=== PATIENT | male | born 1985 | race Caucasian/White ===

== ENCOUNTER 2018-08-16 13:32 | Emergency (ER) | payer OTHER ==
--- NOTE | 2018-08-16 16:53 | ED ---
Syncope/Near Syncope - HPI Summary HPI Summary: This patient is a 32 year old M presenting to ED with a chief complaint of syncope at 0200 this morning. Patient had a stomachache, cramps, and diaphoresis last night and vomited 1x. He went to take a shower and became lightheaded, experienced loss of consciousness and fell and hit his head on the tiled bathroom floor at 0200 this morning. Patient was not drinking alcohol. In the ER he does not have any abdominal pain anymore and has had a bowel movement. Patient is not on blood thinners. His child at home had a stomach bug recently. The patient rates the pain 1/10 in severity. Symptoms aggravated by nothing. Symptoms alleviated by nothing. Patient reports stuff neck. No PMHx of DM, HTN, HLD. Patient denies previous surgery. FHx of HTN but no DM. Patient occasionally drinks alcohol, does not use substances, and has never smoked tobacco. - History Of Current Complaint Chief Complaint: EDSyncope Time Seen by Provider: 08/16/18 16:07 Hx Obtained From: Patient Onset/Duration: Sudden Onset, Resolved Timing: Seconds Context: Unwitnessed, Loss Of Consciousness Activity At Onset: Exertion - Getting up to take a shower Associated Head Trauma: Yes Aggravating Factor(s): Nothing Alleviating Factor(s): Nothing Associated Signs And Symptoms: Diaphoresis, Head Trauma (Recent), Pain - Stiff neck, Vomiting, Other - Resolved abdominal pain - Allergies/Home Medications Allergies/Adverse Reactions: Allergies Allergy/AdvReac Type Severity Reaction Status Date / Time No Known Allergies Allergy Verified 08/16/18 13:42 Home Medications: Home Medications NK [No Home Medications Reported] 08/16/18 [History Confirmed 08/16/18] PMH/Surg Hx/FS Hx/Imm Hx Endocrine/Hematology History: Denies: Hx Diabetes Cardiovascular History: Denies: Hx Hypercholesterolemia, Hx Hypertension - Surgical History Surgery Procedure, Year, and Place: Denies Infectious Disease History: No Infectious Disease History: Denies: Traveled Outside the [place] in Last 30 Days - Family History Known Family History: Positive: Hypertension Negative: Diabetes - Social History Alcohol Use: Occasionally Hx Substance Use: No Substance Use Type: Reports: None Hx Tobacco Use: No Smoking Status (MU): Never Smoked Tobacco Review of Systems Positive: Skin Diaphoresis Gastrointestinal: Other - Cramps Positive: Abdominal Pain, Vomiting Musculoskeletal: Other - Stiff neck Positive: Syncope All Other Systems Reviewed And Are Negative: Yes Physical Exam - Summary Physical Exam Summary: GENERAL: Patient is a well-developed and nourished M who is lying comfortable in the stretcher. Patient is not in any acute respiratory distress. HEAD AND FACE: Normocephalic EYES: PERRLA, EOMI x 2. EARS: Hearing grossly intact. MOUTH: Oropharynx within normal limits. NECK: Supple, trachea is midline, no adenopathy, no JVD, no carotid bruit. CHEST: Symmetric, no tenderness at palpation LUNGS: Clear to auscultation bilaterally. No wheezing or crackles. CVS: Regular rate and rhythm, S1 and S2 present, no murmurs or gallops appreciated. ABDOMEN: Soft, non-tender. Bowel sounds are normal. No abnormal abdominal pulsations. EXTREMITIES: Full ROM in all major joints, no edema, no cyanosis or clubbing. NEURO: Alert and oriented x 3. No acute neurological deficits. Speech is normal and follows commands. SKIN: Dry and warm MUSCULOSKELETAL: Slight tenderness to palpation of the paraspinal cervical area. GCS: 15 Triage Information Reviewed: Yes Vital Signs On Initial Exam: Initial Vitals Temp Pulse Resp BP Pulse Ox 99 F 82 16 117/81 96 08/16/18 13:38 08/16/18 13:38 08/16/18 13:38 08/16/18 13:38 08/16/18 13:38 Vital Signs Reviewed: Yes Diagnostics - Vital Signs Vital Signs Temp Pulse Resp BP Pulse Ox 08/16/18 16:38 75 18 114/69 95 08/16/18 16:00 74 17 97 08/16/18 15:58 13 08/16/18 15:30 98.7 F 78 16 115/58 99 08/16/18 13:38 99 F 82 16 117/81 96 - Laboratory Result Diagrams: 08/16/18 16:53 08/16/18 16:53 Lab Statement: Any lab studies that have been ordered have been reviewed, and results considered in the medical decision making process. - CT C-Spine CT Interpretation Completed By: Radiologist Summary of CT Findings: No CT evidence for traumatic cervical spine injury. Dr. Varghese has reviewed this radiology report. Brain CT Interpretation Completed By: Radiologist Summary of CT Findings: No CT evidence for traumatic brain injury or acute intracranial process. Dr. Varghese has reviewed this radiology report. - EKG 1624 Cardiac Rate: NL - 63 BPM EKG Rhythm: Sinus Rhythm Summary of EKG Findings: NSR at 63 BPM, right axis deviation, benign early repolarization. Re-Evaluation - Re-Evaluation First Eval Re-Evaluation Time: 18:19 Comment: Discussed radiology results with patient. Patient will be discharged home with dx of head injury and vasovagal symptoms and instructions to follow- up with cardiology. Patient understands and agrees with this plan. Course/Dx Course Of Treatment: This patient is a 32 year old M presenting to ED with a chief complaint of syncope at 0200 this morning. In the ED course, bloodwork was obtained. CT C-spine revealed no CT evidence for traumatic cervical spine injury. CT brain revelaed no CT evidence for traumatic brain injury or acute intracranial process. EKG revealed NSR at 63 BPM, right axis deviation, benign early repolarization. Patient will be discharged home with dx of head injury and vasovagal symptoms. I discussed results with patient, and he reports feeling better. He is hemodynamically stable and safe for discharge. Strict return precautions given and he will otherwise follow up with his manager risk management. - Diagnoses Provider Diagnoses: Head injury, Vasovagal episode Discharge - Sign-Out/Discharge Documenting (check all that apply): Patient Departure - Discharge Patient Received Moderate/Deep Sedation with Procedure: No - Discharge Plan Condition: Stable Disposition: HOME Patient Education Materials: Syncope (ED), Head Injury (ED) Referrals: Breana Kim MD [Medical Doctor] - 3 Days Additional Instructions: Follow up with your Dr. Kim, manager risk management, in 1-3 days. RETURN TO THE EMERGENCY DEPARTMENT FOR CHANGING OR WORSENING SYMPTOMS. - Billing Disposition and Condition Condition: STABLE Disposition: Home - Attestation Statements Document Initiated by Scribe: Yes Documenting Scribe: Palmer Figueredo Provider For Whom Elanaibe is Documenting (Include Credential): Anjelica Varghese MD Scribe Attestation: Palmer Carlos, scribed for Anjelica Varghese MD on 08/16/18 at 2049. Scribe Documentation Reviewed: Yes Provider Attestation: The documentation as recorded by the Palmer castellano accurately reflects the service I personally performed and the decisions made by me, Anjelica Varghese MD Status of Scribe Document: Viewed
[2018-08-16 17:01] LABS: ABS Lymphocytes 1.3 10^3/ul (1.0-4.8); ABS Monocytes 0.3 10^3/ul (0-0.8); ABS Neutrophils 1.5 10^3/ul (1.5-7.7); Hematocrit 42 % (42-52); Hemoglobin 14.2 g/dL (14.0-18.0); Mean Corpuscular HGB Conc 34 g/dL (31-36); Mean Corpuscular Hemoglobin 31 pg (27-31); Mean Corpuscular Volume 90 fL (80-94); Mean Platelet Volume 7.7 fL (7.4-10.4); Nucleated Red Blood Cells % 0.1; Platelet Count 172 10^3/uL (150-450); Red Blood Count 4.65 10^6 /uL (4.18-5.48); Red Cell Distribution Width 13 % (10.5-15); White Blood Count 3.2 10^3/uL (3.5-10.8)
[2018-08-16 17:19] LABS: ALT 17 U/L (7-52); AST 18 U/L (13-39); Albumin 4.3 g/dL (3.2-5.2); Albumin/Globulin Ratio 1.6 (1-3); Alkaline Phosphatase 51 U/L (34-104); Anion Gap 5 mmol/L (2-11); BUN/Creatinine Ratio 16.5 (8-20); Blood Urea Nitrogen 16 mg/dL (6-24); CO2 Carbon Dioxide 28 mmol/L (22-32); Chloride 105 mmol/L (101-111); EGFR Non-African American 90.9 (>60); Globulin 2.7 g/dL (2-4); Glucose 100 mg/dL (70-100); Potassium 3.6 mmol/L (3.5-5.0); Sodium 138 mmol/L (135-145)
[2018-08-16 18:24] VITALS: BP 105/70
== END 2018-08-16 18:25 | disposition home or self-care (01) ==
LOC: ED 13:32
DX: S09.90XA Unspecified injury of head, initial encounter (principal); W01.198A Fall on same level from slipping, tripping and stumbling with subsequent striking against other object, initial encounter; Y92.002 Bathroom of unspecified non-institutional (private) residence as the place of occurrence of the external cause; R55 Syncope and collapse
CPT/HCPCS: 36415; 70450; 72125; 80053; 83690; 84484; 85025; 85379; 93005; 99283